=== PATIENT | female | born 1985 | race Caucasian/White ===

== ENCOUNTER 2021-07-24 12:36 | Outpatient (REF) | payer BC, SELFPAY ==
[2021-07-26 00:22] LABS: Vitamin D 25 Total 52.9 ng/mL (30-100)
== END 2021-07-24 12:37 | disposition home or self-care (01) ==
LOC: NCHCN 12:36
PROVIDERS: PCP Nurse Practitioner Psychiatric/Mental Health; Visit Provider Nurse Practitioner Psychiatric/Mental Health
DX: F41.8 Other specified anxiety disorders (principal)
CPT/HCPCS: 82306

== ENCOUNTER 2022-04-04 09:50 | Outpatient (REF) | payer BC, SELFPAY ==
[2022-04-04 15:48] LABS: ALT 31 U/L (14-59); AST 26 U/L (15-37); Albumin 3.9 g/dL (3.4-5.0); Alkaline Phosphatase 80 U/L (46-116); BUN 12 mg/dL (7-18); Bilirubin, Total 0.4 mg/dL (0.2-1.0); CREATININE 0.7 mg/dL (0.55-1.02); Calcium 8.8 mg/dL (8.5-10.1); Calculated LDL 97 mg/dL (<100); Chloride 103 mmol/L (98-107); Cholesterol 159 mg/dL (<200); Estimated GFR 113.46 (mL/min/1.73m2); Glucose 86 mg/dL (74-106); HDL Cholesterol 40 mg/dL (40-60); Potassium 3.9 mmol/L (3.5-5.1); Sodium 140 mmol/L (136-145); Total Protein 7.8 g/dL (6.4-8.2); Triglyceride 111 mg/dL (<150)
== END 2022-04-04 09:51 | disposition home or self-care (01) ==
LOC: NCHCN 09:50
PROVIDERS: PCP Nurse Practitioner Psychiatric/Mental Health; Visit Provider Nurse Practitioner Family
DX: E66.3 Overweight (principal); Z13.220 Encounter for screening for lipoid disorders; Z00.00 Encounter for general adult medical examination without abnormal findings
CPT/HCPCS: 80053; 80061

== ENCOUNTER 2022-04-22 13:08 | Outpatient (REF) | payer BC, SELFPAY ==
--- NOTE | 2022-04-22 10:00 | SKI_PTH ---
PATIENT: Leticia Agustin LOC: [facility] U#:[id number] AGE/SX: 37/F ROOM: RE04/22/[address]: Francia Fall : 1985 BED: DIS: 04/22/2022 SPEC #: [id number] RECD: 04/23/22 12:38 STATUS: REY REQ #: [id number] JANICE: 04/22/22 10:[address]: Francia Fall DEPT: Surgical Specimen RECD BY: Concepcion Guerra ENTERED: 04/23/22 12:40 SP TYPE: DURGA OLMEDO DR: Magy Bobby Tissues: 1 - SKIN BIOPSY(SHAVE/PUNCH) Procedures: GROSS AND MICRO LEVEL 3 Comments: [id number]
== END 2022-04-22 13:09 | disposition home or self-care (01) ==
LOC: LBN 13:08
PROVIDERS: PCP Nurse Practitioner Psychiatric/Mental Health; Visit Provider Nurse Practitioner Family
DX: L72.9 Follicular cyst of the skin and subcutaneous tissue, unspecified (principal)
CPT/HCPCS: 88304; 88305

== ENCOUNTER 2023-03-03 13:23 | Outpatient (REF) | payer BC, SELFPAY ==
[2023-03-03 15:31] LABS: ALT 22 U/L (14-59); AST 25 U/L (15-37); Albumin 3.7 g/dL (3.4-5.0); Alkaline Phosphatase 92 U/L (46-116); Anion Gap 7.9 mmol/L (3-11); BUN 10 mg/dL (7-18); Bilirubin, Total 0.3 mg/dL (0.2-1.0); CO2 27.1 mmol/L (21.0-32.0); CREATININE 0.7 mg/dL (0.55-1.02); Chloride 104 mmol/L (98-107); Estimated GFR 112.75 (mL/min/1.73m2); Glucose 81 mg/dL (74-106); Potassium 4.1 mmol/L (3.5-5.1); Sodium 139 mmol/L (136-145); Total Protein 7.4 g/dL (6.4-8.2)
== END 2023-03-03 13:24 | disposition home or self-care (01) ==
LOC: NCHCN 13:23
PROVIDERS: PCP Nurse Practitioner Psychiatric/Mental Health; Visit Provider Nurse Practitioner Family
DX: E66.9 Obesity, unspecified (principal); Z51.81 Encounter for therapeutic drug level monitoring
CPT/HCPCS: 80053

== ENCOUNTER 2023-03-18 12:34 | Outpatient (REF) | payer BC, SELFPAY ==
[2023-03-18 14:39] LABS: Ferritin 13 ng/mL (8-252); TSH (W/Ref FT4) 1.95 uIU/mL (0.36-3.74)
== END 2023-03-18 12:35 | disposition home or self-care (01) ==
LOC: NCHCN 12:34
PROVIDERS: PCP Nurse Practitioner Psychiatric/Mental Health; Visit Provider Nurse Practitioner Family
DX: L65.9 Nonscarring hair loss, unspecified (principal)
CPT/HCPCS: 82728; 84443

== ENCOUNTER 2023-03-25 12:26 | Outpatient (REF) | payer BC, SELFPAY ==
[2023-03-25 22:02] LABS: HCT 38.7 % (36.0-46.0); HGB 12.8 g/dL (11.2-15.7); MCH 29.1 pg (27.0-33.0); MCHC 33.1 % (32.0-36.0); MCV 88 fL (80-95); MPV 9.8 fL (8.0-11.0); Platelet Count 335 10^3/uL (130-400); RDW 13.2 % (11.7-14.6); RDW-SD 42.9 fL; WBC 10.86 10^3/uL (4.4-10.8)
[2023-03-25 22:37] LABS: Calculated LDL 74 mg/dL (<100); Cholesterol 157 mg/dL (<200); HDL Cholesterol 43 mg/dL (40-60); Triglyceride 200 mg/dL (<150)
== END 2023-03-25 12:27 | disposition home or self-care (01) ==
LOC: NCHCN 12:26
PROVIDERS: PCP Nurse Practitioner Psychiatric/Mental Health; Visit Provider Nurse Practitioner Family
DX: E61.1 Iron deficiency (principal); L65.9 Nonscarring hair loss, unspecified; Z00.00 Encounter for general adult medical examination without abnormal findings; Z82.49 Family history of ischemic heart disease and other diseases of the circulatory system
CPT/HCPCS: 80061; 85027

== ENCOUNTER 2023-09-04 14:54 | Outpatient (REF) | payer BC, SELFPAY ==
--- OUTSIDE RECORDS SUMMARY | 2023-09-04 14:56 | XMS_ITS | Continuity of Care Document ---
Author Name Unknown Organization [facility] Address [address] [place] [address] Care Team Providers Care Yarn Preparation Supervisor Name Role Phone Francia Fall Primary Care Physician [phone] Encounter [facility] Date(s): 06/06/23 - 06/06/[address] [address] Discharge Disposition: Home or Self Care Attending Physician: Francia Fall WORK CAR OPERATOR Admitting Physician: Francia Fall WORK CAR OPERATOR Referring Physician: Francia Fall WORK CAR OPERATOR Patient Care team information Care Team Personnel Name: Francia Fall WORK CAR OPERATOR Position: No Access Member Role: Primary Care Physician Address: Address: [address] [place] [phone] Care Team Related Persons Name: INES KYLE
[2023-09-04 16:04] LABS: C-Reactive Protein 0.99 mg/dL (<or=0.5); FREE T4 0.93 ng/dL (0.76-1.46)
[2023-09-04 16:44] LABS: Vitamin B12 1422 pg/mL (193-986)
== END 2023-09-04 14:55 | disposition home or self-care (01) ==
LOC: LBN 14:54
PROVIDERS: PCP Nurse Practitioner Psychiatric/Mental Health; Visit Provider Nurse Practitioner Family
DX: F41.3 Other mixed anxiety disorders (principal); R45.4 Irritability and anger; R46.81 Obsessive-compulsive behavior; R79.82 Elevated C-reactive protein (CRP); Z79.899 Other long term (current) drug therapy; Z91.52 Personal history of nonsuicidal self-harm; Z81.8 Family history of other mental and behavioral disorders
CPT/HCPCS: 82607; 84439; 84443; 86140